=== PATIENT | female | born 1995 | race Caucasian/White ===

== ENCOUNTER 2017-08-11 17:33 | Emergency (ER) | payer OTHER ==
[~2017-08-11] VITALS: Ht 175.3 cm; Wt 73.1 kg
[2017-08-11 17:44] VITALS: TEMP 36.9; Ht 175.3 cm; Wt 73.1 kg
[2017-08-11] MEDS ORDERED: MULT-506 PO (18:07)
[2017-08-11] MEDS ORDERED: ESCI10TA17 PO (18:07)
[2017-08-11] MEDS ORDERED: INSPMPNVLG (18:07)
--- NOTE | 2017-08-11 18:40 | EMERGENCY ROOM VISIT NOTE ---
History Report prepared by Edu: Stacy Bowser Under the Supervision of: Dr. Ki Baird M.D. First contact with patient: 18:10 Chief Complaint: BELLS PALSY SYMPTOMS Stated Complaint: BELLS PALSY AND WANDERING EYE- [facility] REFERRED History of Present Illness The patient is a 22 year old white female with a past medical history of type 1 diabetes, anxiety, depression who presents to the ED with a cc of persistent bells palsy beginning 5 days ago. Positive right facial droop, dry right eye, wandering right eye. Negative nausea, vomiting, fever, chills. She denies any new exposures. She is taking her medications as prescribes. She denies any falls , injury, or walking issues. She notes that her sugars run in the 300s and she does not check often. Source of History: patient Onset: 5 days ago Position: other (right face) Quality: other (bells palsy) Timing: other (persistent) Associated Symptoms: No fevers, No chills, No nausea, No vomiting Review of Systems See HPI for pertinent positives and negatives. A total of ten systems were reviewed and were otherwise negative. Past Medical & Surgical Medical Problems: (1) Anxiety (2) Depression (3) Type 1 diabetes Family History No pertinent family history stated. Social History Smoking Status: Never Smoker Marital Status: single Occupation Status: [employer] student Current/Historical Medications Scheduled Artificial Tears Oph Oint (Lacri-Lube Sop Oph Oint), 0.25-0.5 INCH OP QID Escitalopram (Lexapro), 10 MG PO DAILY Insulin Aspart (novoLOG INSULIN PUMP ), 1 EA N/A UD Multivitamin (Multivitamin), 1 TAB PO DAILY Prednisone (Prednisone), 0 PO DAILY Allergies Coded Allergies: No Known Allergies (Unverified , 08/11/17) Physical Exam Vital Signs Date Time Temp Pulse Resp B/P (MAP) Pulse Ox O2 Delivery O2 Flow Rate FiO2 08/11/17 22:08 74 15 110/68 99 08/11/17 21:30 81 16 117/74 98 Room Air 08/11/17 19:36 84 18 119/87 99 08/11/17 17:44 36.9 84 18 123/90 97 Room Air Physical Exam GENERAL: Awake, alert, well-appearing, NAD HENT: Normocephalic, atraumatic. EYES: Normal conjunctiva. Sclera non-icteric. NECK: Supple. No nuchal rigidity. FROM. RESPIRATORY: CTAB, no rhonchi, wheezing, crackles CARDIAC: RRR, no MRG ABDOMEN: Soft, NTND, BS+ MSK: No chest wall TTP, no LE edema NEURO: GCS 15, moves all 4s on command, noted difficulty with right sided eyebrow raising, shutting right eye, right facial droop on smiling SKIN: No rash or jaundice noted. Medical Decision & Procedures ER Provider Diagnostic Interpretation: Radiology results as stated below per my review and radiologist interpretation: CT HEAD WITHOUT CONTRAST (CT) CLINICAL HISTORY: Calzada's palsy COMPARISON STUDY: None TECHNIQUE: Axial CT of the brain is performed from the vertex to the skull base. IV contrast was not administered for this examination. A dose lowering technique was utilized adhering to the principles of ALARA. CT DOSE: 537.48 mGy.cm FINDINGS: No intra or extra-axial mass lesions are visualized. There is no CT evidence of acute cortical infarction. There is no evidence of midline shift. There is no acute hemorrhage. No calvarial fractures are visualized. There is no evidence of pathologic ventricular dilatation. There is no evidence of acute sinusitis IMPRESSION: Normal noncontrast head CT. Electronically signed by: William Calhoun M.D. 08/11/2017 8:39 PM Dictated Date/Time: 08/11/2017 8:37 PM MRI OF THE BRAIN WITHOUT CONTRAST CLINICAL HISTORY: patient w/ likely Calzada's palsy, h/o DM1, [facility], INABILITY TO CLOSE RIGHT EYE. UNABLE TO RAISE RIGHT EYEBROW. WANDERING RIGHT EYE. COMPARISON STUDY: None. FINDINGS: Sagittal T1, axial diffusion, proton density and T2 weighted axial, coronal FLAIR, and axial T1-weighted images were acquired. No intra or extra-axial mass lesions are visualized Axial diffusion-weighted images reveal no evidence of acute or subacute infarction. There is no evidence of ventricular dilatation. Proton density T2-weighted and FLAIR images reveal no significant intraparenchymal signal abnormalities. There are no abnormal flow voids. IMPRESSION: Normal noncontrast MRI of the brain. Electronically signed by: William Calhoun M.D. 08/11/2017 8:43 PM Dictated Date/Time: 08/11/2017 8:39 PM Laboratory Results 08/11/17 18:49 Red Blood Count 4.85, Mean Corpuscular Volume 88.0, Mean Corpuscular Hemoglobin 30.9, Mean Corpuscular Hemoglobin Concent 35.1, Mean Platelet Volume 11.3, Neutrophils (%) (Auto) 43.2, Lymphocytes (%) (Auto) 47.4, Monocytes (%) (Auto) 7.4, Eosinophils (%) (Auto) 1.4, Basophils (%) (Auto) 0.4, Neutrophils # (Auto) 2.44, Lymphocytes # (Auto) 2.68, Monocytes # (Auto) 0.42, Eosinophils # (Auto) 0.08, Basophils # (Auto) 0.02 08/11/17 18:49 Test 08/11/17 18:49 08/11/17 20:45 White Blood Count 5.65 K/uL (4.8-10.8) Red Blood Count 4.85 M/uL (4.2-5.4) Hemoglobin 15.0 g/dL (12.0-16.0) Hematocrit 42.7 % (37-47) Mean Corpuscular Volume 88.0 fL (80-100) Mean Corpuscular Hemoglobin 30.9 pg (25-34) Mean Corpuscular Hemoglobin Concent 35.1 g/dl (32-36) Platelet Count 232 K/uL (130-400) Mean Platelet Volume 11.3 fL (7.4-10.4) Neutrophils (%) (Auto) 43.2 % Lymphocytes (%) (Auto) 47.4 % Monocytes (%) (Auto) 7.4 % Eosinophils (%) (Auto) 1.4 % Basophils (%) (Auto) 0.4 % Neutrophils # (Auto) 2.44 K/uL (1.4-6.5) Lymphocytes # (Auto) 2.68 K/uL (1.2-3.4) Monocytes # (Auto) 0.42 K/uL (0.11-0.59) Eosinophils # (Auto) 0.08 K/uL (0-0.5) Basophils # (Auto) 0.02 K/uL (0-0.2) RDW Standard Deviation 38.8 fL (36.4-46.3) RDW Coefficient of Variation 12.2 % (11.5-14.5) Immature Granulocyte % (Auto) 0.2 % Immature Granulocyte # (Auto) 0.01 K/uL (0.00-0.02) Erythrocyte Sedimentation Rate 19 mm/hr (0-21) Anion Gap 7.0 mmol/L (3-11) Est Creatinine Clear Calc Drug Dose 136.8 ml/min Estimated GFR () 144.9 Estimated GFR (Non- 125.0 BUN/Creatinine Ratio 17.8 (10-20) Calcium Level 9.9 mg/dl (8.5-10.1) C-Reactive Protein 0.40 mg/dl (0-0.29) Lyme Disease IgG Antibody NEG (NEG) Lyme Disease IgM Antibody NEG (NEG) Urine Color YELLOW Urine Appearance CLEAR (CLEAR) Urine pH 6.5 (4.5-7.5) Urine Specific [place] 1.026 (1.000-1.030) Urine Protein NEG (NEG) Urine Glucose (UA) 3+ (NEG) Urine Ketones NEG (NEG) Urine Occult Blood NEG (NEG) Urine Nitrite NEG (NEG) Urine Bilirubin NEG (NEG) Urine Urobilinogen NEG (NEG) Urine Leukocyte Esterase NEG (NEG) Urine WBC (Auto) 5-10 /hpf (0-5) Urine RBC (Auto) 0-4 /hpf (0-4) Urine Hyaline Casts (Auto) 0 /lpf (0-5) Urine Epithelial Cells (Auto) >30 /lpf (0-5) Urine Bacteria (Auto) NEG (NEG) Urine Test NEG (NEG) Laboratory results reviewed by me Medications Administered Medications (Trade) Dose Ordered Sig/Missy Route Start Time Stop Time Status Last Admin Dose Admin Prednisone (PredniSONE TAB) 60 mg NOW STAT PO 08/11/17 21:40 08/11/17 21:42 DC 08/11/17 22:06 60 MG ED Course 3: The patient was evaluated in room C3. A complete history and physical exam was performed. 2126: I reevaluated the patient. I discussed results and discharge instructions : she verbalized understanding and agreement. The patient is ready for discharge. 2139: Prednisone 60 mg PO. Medical Decision Differential diagnosis: bells palsy, electrolyte abnormality, TIA, stroke, lyme disease. The patient is a 22 year old white female with a past medical history of type 1 diabetes, anxiety, depression who presents to the ED with a cc of persistent bells palsy beginning 5 days ago. Patient was seen and evaluated at the bedside. Patient was recently seen at [facility] and they were concerned of an additional ocular symptom and thus a neurologist was called who recommended that they obtain advanced imaging. On exam patient did have some mild difficulty with raising her left eyebrow closing her right eye and did have some difficulty with smiling with inability to form a smile on right side of her mouth. Patient's blood work was fairly unremarkable. Patient had a negative Lyme's titer. Patient had negative CT and MRI brain. Patient was given a course of steroids beginning now and told to take them in the morning with food. Patient should also continue to check her sugars and she has an insulin pump. An attempt was made to reach the referring neurologist however I was unable to reach them at this time. Given the fact that the patient's symptoms on exam are consistent with a Calzada's palsy and the negative imaging patient was given a course of steroids and told to follow-up with neurology. Patient was also told to apply Lacri-Lube to her right eye to keep it from drying out and forming a possible abrasion or ulceration. Patient was amenable to the plan of care. Patient was given strict follow-up, discharge, and return precautions. On reexamination patient had no other neurologic deficits. Patient was safely discharged home. Medication Reconcilliation Current Medication List: was personally reviewed by me Blood Pressure Screening Patient's blood pressure: Normal blood pressure Blood pressure disposition: Did not require urgent referral Impression Primary Impression: Calzada's palsy Scribe Attestation The scribe's documentation has been prepared under my direction and personally reviewed by me in its entirety. I confirm that the note above accurately reflects all work, treatment, procedures, and medical decision making performed by me. Departure Information Dispostion Home / Self-Care Prescriptions Artificial Tears Oph Oint (Lacri-Lube Sop Oph Oint) Oint 0.25-0.5 INCH OP QID, #1 TUBE TO THE AFFECTED EYE UP TO QID PRN Prov: Ki Baird M.D. 08/11/17 Prednisone (Prednisone) 20 Mg Tab 0 PO DAILY for 7 Days, #14 TAB 3 TABS DAILY FOR 2 DAYS, THEN 2 TABS DAILY FOR 2 DAYS, THEN 1 TAB DAILY FOR 2 DAYS, THEN 1/2 TAB DAILY FOR 2 DAYS. Prov: Ki Baird M.D. 08/11/17 Referrals No Doctor, Assigned (PCP) Juan Yeun M.D. Patient Instructions ED [place] Palsy, My [facility] Additional Instructions Please return to the emergency department if you have worsening or recurrent symptoms not amenable to at-home treatment. Please call for a follow-up appointment with her primary care physician. Please take your medications as prescribed. If you have other concerns and/or complaints please feel free to also call your primary care physician's office or return the ED for further evaluation, management, and treatment. You may take 600 mg Ibuprofen every 6 hours as needed for pain with food for no more than 2 consecutive days. You may take tylenol 1000mg every 6 hours as needed for pain. You may take motrin and tylenol separately or at the same time. Take steroids for one week w/ food as it may cause some upset stomach and early in day as it may keep you up at night. You have been examined and treated today on an emergency basis only. This is not a substitute for, or an effort to provide, complete comprehensive medical care. It is impossible to recognize and treat all injuries or illnesses in a single emergency department visit. It is therefore important that you follow up closely with [facility]. Call as soon as possible for an appointment. Thank you for your time and consideration. I look forward to speaking with you again soon. Please don't hesitate to call us if you have any questions. School Instructions Return To School: 1 day
[2017-08-11 19:01] LABS: BASO % 0.4 %; BASO ABS # 0.02 K/uL (0-0.2); COMPLETE YES; EOS % 1.4 %; HEMATOCRIT 42.7 % (37-47); IG% 0.2 %; LYMPH % 47.4 %; LYMPH ABS # 2.68 K/uL (1.2-3.4); MEAN CORPUSCULAR HEMOGLOBIN 30.9 pg (25-34); MEAN CORPUSCULAR HGB CONC 35.1 g/dl (32-36); MEAN PLATELET VOLUME 11.3 fL (7.4-10.4); MONO % 7.4 %; NEUT % 43.2 %; PLATELET COUNT 232 K/uL (130-400); RED BLOOD COUNT 4.85 M/uL (4.2-5.4); WHITE BLOOD COUNT 5.65 K/uL (4.8-10.8)
[2017-08-11 19:18] LABS: BUN/CREATININE RATIO 17.8 (10-20); C-REACTIVE PROTEIN 0.4 mg/dl (0-0.29); CALCIUM 9.9 mg/dl (8.5-10.1); CREATININE 0.68 mg/dl (0.60-1.20); POTASSIUM 3.2 mmol/L (3.5-5.1)
[2017-08-11 19:49] LABS: LYME DISEASE AB IGG NEG (NEG); LYME DISEASE AB IGM NEG (NEG)
--- NOTE | 2017-08-11 20:41 | DIAGNOSTIC IMAGING REPORT ---
CT HEAD WITHOUT CONTRAST (CT) CLINICAL HISTORY: Calzada's palsy COMPARISON STUDY: None TECHNIQUE: Axial CT of the brain is performed from the vertex to the skull base. IV contrast was not administered for this examination. A dose lowering technique was utilized adhering to the principles of ALARA. CT DOSE: 537.48 mGy.cm FINDINGS: No intra or extra-axial mass lesions are visualized. There is no CT evidence of acute cortical infarction. There is no evidence of midline shift. There is no acute hemorrhage. No calvarial fractures are visualized. There is no evidence of pathologic ventricular dilatation. There is no evidence of acute sinusitis IMPRESSION: Normal noncontrast head CT. Electronically signed by: William Calhoun M.D. 08/11/2017 8:39 PM Dictated Date/Time: 08/11/2017 8:37 PM
--- NOTE | 2017-08-11 20:45 | DIAGNOSTIC IMAGING REPORT ---
MRI OF THE BRAIN WITHOUT CONTRAST CLINICAL HISTORY: patient w/ likely Calzada's palsy, h/o DM1, [facility], INABILITY TO CLOSE RIGHT EYE. UNABLE TO RAISE RIGHT EYEBROW. WANDERING RIGHT EYE. COMPARISON STUDY: None. FINDINGS: Sagittal T1, axial diffusion, proton density and T2 weighted axial, coronal FLAIR, and axial T1-weighted images were acquired. No intra or extra-axial mass lesions are visualized Axial diffusion-weighted images reveal no evidence of acute or subacute infarction. There is no evidence of ventricular dilatation. Proton density T2-weighted and FLAIR images reveal no significant intraparenchymal signal abnormalities. There are no abnormal flow voids. IMPRESSION: Normal noncontrast MRI of the brain. Electronically signed by: William Calhoun M.D. 08/11/2017 8:43 PM Dictated Date/Time: 08/11/2017 8:39 PM
[2017-08-11 21:07] LABS: URINE APPEARANCE CLEAR (CLEAR); URINE BILIRUBIN NEG (NEG); URINE COLOR YELLOW; URINE EPITHELIAL CELL AUTO >30 /lpf (0-5); URINE NITRITE NEG (NEG); URINE PH 6.5 (4.5-7.5); URINE SPECIFIC GRAVITY 1.026 (1.000-1.030); UROBILINOGEN NEG (NEG); ZZUR CULT IF INDIC CLEAN CATCH NO
[2017-08-11 21:11] LABS: MANUAL MICROSCOPIC REQUIRED? NO; REVIEW REQ? NO
[2017-08-11] MEDS ORDERED: ARTIOIN OP (21:40)
[2017-08-11] MEDS ORDERED: PRED20TA PO (21:40)
[2017-08-11 22:08] VITALS: BP 110/68; PULSE 74; O2SAT 99
== END 2017-08-11 22:09 | disposition home or self-care (01) ==
LOC: C.EDB 17:35 → C.EDC 22:09
DX: G51.0 Bell's palsy (principal); E10.9 Type 1 diabetes mellitus without complications; F41.9 Anxiety disorder, unspecified; F32.9 Major depressive disorder, single episode, unspecified; Z79.4 Long term (current) use of insulin